=== PATIENT | male | born 1935 | race Caucasian/White ===

== ENCOUNTER 2016-06-06 13:43 | Emergency (ER) | payer MEDICARE, MEDICAID ==
[~2016-06-06] VITALS: Ht 177.8 cm; Wt 78.9 kg
[2016-06-06 13:46] VITALS: BP_SYST 125
[2016-06-06 14:33] LABS: HEMATOCRIT 34.9 % (36-54)
[2016-06-06 14:44] LABS: CALCIUM 8.8 mg/dL (8.4-11.0); CHLORIDE 105 mmol/L (98-107); CREATININE 2.51 mg/dL (0.55-1.30); GLUCOSE 120 mg/dL (70-99); POTASSIUM 4.7 mmol/L (3.5-5.1); SODIUM SERUM 136 mmol/L (136-145); UREA NITROGEN, BLOOD 38 mg/dL (8-21)
[2016-06-06 14:46] LABS: ANION GAP < 3 (5-15)
[2016-06-06 14:48] LABS: ALANINE AMINOTRANSFERASE 41 U/L (12-78); ASPARTATE AMINOTRANSFERASE 42 U/L (10-37); TOTAL BILIRUBIN 0.3 mg/dL (0.0-1.0); TOTAL PROTEIN, SERUM 7.9 g/dL (6.4-8.3)
[2016-06-06 14:50] LABS: MEAN CORPUSCULAR HEMOGLOBIN 30 pg (27-31); MEAN CORPUSCULAR HGB CONC 34 % (32-36)
[2016-06-06 14:54] LABS: WHITE BLOOD COUNT (AUTO) 11.7 K/uL (4.8-10.8)
[2016-06-06 14:55] LABS: HEMOGLOBIN 11.8 g/dL (14.0-18.0); MEAN CORPUSCULAR VOLUME 88 fL (79.0-98.0); PLATELET COUNT (AUTO) 176 K/uL (130-430); RED BLOOD CELL COUNT(AUTO) 3.95 MIL/uL (4.2-6.2); RED CELL DISTRIBUTION WIDTH 13.3 % (9.0-15.0)
[2016-06-06] MEDS ORDERED: SENN8.6T19 PO (15:29)
[2016-06-06] MEDS ORDERED: OMEG300C3 PO (15:29)
[2016-06-06] MEDS ORDERED: FAMO20TA98 PO (15:29)
[2016-06-06] MEDS ORDERED: ONDA4TAB5 PO (15:29)
[2016-06-06] MEDS ORDERED: VIT D PO (15:29)
[2016-06-06] MEDS ORDERED: LIP80 PO (15:29)
[2016-06-06] MEDS ORDERED: WARF2TAB2 PO (15:29)
[2016-06-06] MEDS ORDERED: BECL8.7A5 INH (15:29)
[2016-06-06] MEDS ORDERED: LOSA50TA3 PO (15:29)
[2016-06-06] MEDS ORDERED: METO25TA3 PO (15:29)
[2016-06-06] MEDS ORDERED: TRAM50TA2 PO (15:29)
[2016-06-06] MEDS ORDERED: MULT-1117 PO (15:29)
[2016-06-06] MEDS ORDERED: ALBU8.5H8 INH (15:29)
[2016-06-06] MEDS ORDERED: CAPS1ADH9 TP (15:29)
[2016-06-06 16:06] LABS: ATYPICAL LYMPHOCYTES % 0 % (0-0); BAND % (MANUAL) 0 % (0-6); LYMPHOCYTES % (MANUAL) 58 % (20-46); MONOCYTES % (MANUAL) 3 % (0-11)
[2016-06-06 16:07] LABS: BASOPHILS % (MANUAL) 0 % (0-2); EOSINOPHILS % (MANUAL) 2 % (0-7)
[2016-06-06 16:15] VITALS: BP_SYST 120
[2016-06-06] MEDS ORDERED: NS 500 ML IV ONE (16:15)
[2016-06-06 16:28] LABS: BILIRUBIN,URINE NEGATIVE (NEGATIVE); BLOOD, URINE NEGATIVE (NEGATIVE); CLARITY/URINE CLEAR (CLEAR); COLOR,URINE YELLOW (YELLOW); GLUCOSE,URINE NEGATIVE (NEGATIVE); KETONES,URINE TRACE (NEGATIVE); LEUKOCYTE ESTERASE ,URINE NEGATIVE (NEGATIVE); NITRITE, URINE NEGATIVE (NEGATIVE); PH,URINE 5.5 (5.0-8.0); PROTEIN URINE 2+ (NEGATIVE); UROBILINOGEN,URINE 0.2 (0.2-1.0)
[2016-06-06 16:43] LABS: RBC,URINE 0-3 /HPF (0-3)
[2016-06-06 16:44] LABS: BACTERIA,URINE FEW /HPF (None Seen); MUCUS,URINE 1+ /LPF (None Seen)
== END 2016-06-06 16:15 | disposition home or self-care (01) ==
LOC: SED 13:43
DX: E86.0 Dehydration (principal); R55 Syncope and collapse; E11.9 Type 2 diabetes mellitus without complications; I10 Essential (primary) hypertension; Z86.73 Personal history of transient ischemic attack (TIA), and cerebral infarction without residual deficits; Z96.89 Presence of other specified functional implants; Z79.899 Other long term (current) drug therapy
CPT/HCPCS: 36415; 70450-TC; 80053; 81000-TC; 85007; 85027; 87086; 93005; 99285